=== PATIENT | female | born 1995 | race Caucasian/White ===

== ENCOUNTER 2018-06-14 16:58 | Emergency (ER) | payer BC ==
[2018-06-14 17:10] VITALS: BP 130/97
== END 2018-06-14 18:05 | disposition left against medical advice (07) ==
LOC: CED 16:58
DX: Z53.21 Procedure and treatment not carried out due to patient leaving prior to being seen by health care provider (principal); M54.9 Dorsalgia, unspecified

== ENCOUNTER → 2018-06-25 | Outpatient (CLI) | payer BC | LOC: BMCIMAGING 14:47 | PROVIDERS: ATTEND Family Medicine | DX: N05.9 Unspecified nephritic syndrome with unspecified morphologic changes (principal); R31.9 Hematuria, unspecified ==